=== PATIENT | female | born 1995 | race African-American/Black ===

== ENCOUNTER 2016-10-29 14:29 | Emergency (ER) | payer SELFPAY ==
[2016-10-29] MEDS ORDERED: HYDROCODONE/ACETAMINOPHEN 5-325 MG TABLET PO ONE (15:05)
--- NOTE | 2016-10-29 15:07 | ER Document Report ---
HPI - HPI Patient complains to provider of: bilat leg pain Onset: Last week Onset/Duration: Gradual Quality of pain: Achy Pain Level: 4 Context: pt c/o bilat leg muscle pain for the past week. Patient denies any injury, chest pain, or shortness of breath. Patient denies any fever. Patient states she does a lot of standing and walking at work. Patient states she has had similar episode in the past but was not diagnosed with anything in particular. Associated Symptoms: Other - Bilateral leg pain Exacerbated by: Standing, Movement, Walking Relieved by: Denies Similar symptoms previously: Yes Recently seen / treated by doctor: No - ROS ROS below otherwise negative: Yes Systems Reviewed and Negative: Yes All other systems reviewed and negative - CONSTITUTIONAL Constitutional: DENIES: Fever, Chills - NEURO Neurology: DENIES: Headache, Weakness - CARDIOVASCULAR Cardiovascular: DENIES: Chest pain - RESPIRATORY Respiratory: DENIES: Trouble Breathing, Coughing - GASTROINTESTINAL Gastrointestinal: DENIES: Nausea - MUSCULOSKELETAL Musculoskeletal: REPORTS: Extremity pain. DENIES: Back Pain, Swelling - DERM Skin Color: Normal, [place] Skin Problems: None - NURSING COMMENTS Comment: c/0 bilat leg pain denies any injury pt states that she stands on her feet and walks alot at work Past Medical History - General Information source: Patient Last Menstrual Period: 10-20-16 - Social History Smoking Status: Never Smoker Cigarette use (# per day): No Chew tobacco use (# tins/day): No Frequency of alcohol use: None Drug Abuse: None Occupation: food order delivery runner Lives with: Family Family History: Reviewed & Not Pertinent - Medical History Medical History: Negative - Past Medical History Cardiac Medical History: Denies: Hx DVT, Hx Pulmonary Embolism Surgical Hx: Negative - Immunizations Hx Diphtheria, Pertussis, Tetanus Vaccination: No Vertical Provider Document - CONSTITUTIONAL Agree With Documented VS: Yes Exam Limitations: No Limitations General Appearance: WD/WN, No Apparent Distress - INFECTION CONTROL TRAVEL OUTSIDE OF THE [place] IN LAST 30 DAYS: No - HEENT HEENT: Atraumatic, Normal ENT Exam, Normocephalic - NECK Neck: Normal Inspection, Supple. negative: Lymphadenopathy-Left, Lymphadenopathy-Right - RESPIRATORY Respiratory: Breath Sounds Normal, No Respiratory Distress, Chest Non-Tender O2 Sat by Pulse Oximetry: 99 - CARDIOVASCULAR Cardiovascular: Regular Rate, Regular Rhythm, No Murmur Pulses: Normal: Posterior tibial - BACK Back: Normal Inspection. negative: CVA Tenderness-Right, CVA Tenderness-Left - MUSCULOSKELETAL/EXTREMETIES Musculoskeletal/Extremeties: MAEW, Tender - Muscle tenderness to bilateral lower extremities. No edema. Normal skin color and temperature to legs bilaterally, no joint pain - NEURO Level of Consciousness: Awake, Alert, Appropriate Motor/Sensory: No Motor Deficit, No Sensory Deficit - DERM Integumentary: Warm, Dry, No Rash Course - Vital Signs Vital signs: Temp Pulse Resp BP Pulse Ox 97.7 F 69 20 101/79 99 10/29/16 14:35 10/29/16 14:35 10/29/16 14:35 10/29/16 14:35 10/29/16 14:35 - Laboratory Result Diagrams: 10/29/16 15:10 10/29/16 15:10 Laboratory results interpreted by me: 10/29/16 15:56 Labs- Entire Visit 10/29/16 10/29/16 10/29/16 15:10 15:10 15:10 WBC 4.2 RBC 4.63 Hgb 13.4 Hct 40.0 MCV 86 MCH 29.0 MCHC 33.6 RDW 13.5 Plt Count 277 Seg Neutrophils % 40.2 L Lymphocytes % 47.7 H Monocytes % 9.1 Eosinophils % 2.2 Basophils % 0.8 Absolute Neutrophils 1.7 Absolute Lymphocytes 2.0 Absolute Monocytes 0.4 Absolute Eosinophils 0.1 Absolute Basophils 0.0 Sodium 142.8 Potassium 4.1 Chloride 103 Carbon Dioxide 25 Anion Gap 15 BUN 11 Creatinine 0.71 Est GFR ( Amer) > 60 Est GFR (Non-Af Amer) > 60 Glucose 73 L Calcium 9.4 Total Bilirubin 0.4 Direct Bilirubin 0.0 AST 14 ALT 20 Alkaline Phosphatase 66 Creatine Kinase 86 Total Protein 7.1 Albumin 4.4 Serum HCG, Qual NEGATIVE Discharge - Discharge Clinical Impression: Myalgia Condition: Stable Disposition: HOME, SELF-CARE Instructions: Myalagia (Muscle Pain) ([facility]), Anti-Inflammatory Medication ([facility]) , Muscle Relaxers ([facility]) Additional Instructions: Return immediately for any new or worsening symptoms Followup with your primary care provider, call tomorrow to make a followup appointment Stay well-hydrated Prescriptions: Cyclobenzaprine HCl [Flexeril 10 Mg Tablet] 10 mg PO TID #15 tablet Naproxen [Naprosyn 250 Nmg Tablet] 1 tab PO BID #14 tablet Forms: Return to Work Referrals: [facility] [Provider Group] - Follow up as needed
[2016-10-29 15:42] LABS: ABSOLUTE EOSINOPHILS # (AUTO) 0.1 10^3/uL (0.0-0.6); ABSOLUTE MONOCYTES (AUTO) 0.4 10^3/uL (0.1-1.4); ABSOLUTE NEUT (AUTO) 1.7 10^3/uL (1.7-8.2); BASOPHILS % (AUTO) 0.8 % (0-2); EOSINOPHILS % (AUTO) 2.2 % (0-6); HEMOGLOBIN 13.4 g/dL (12.0-15.5); HGB HCT DIFFERENCE 0.2; LYMPHOCYTES % (AUTO) 47.7 % (13-45); MEAN CORPUSCULAR HGB CONC 33.6 g/dL (32.0-36.0); MEAN CORPUSCULAR VOLUME 86 fl (80-97); MONOCYTES % (AUTO) 9.1 % (3-13); RED BLOOD COUNT 4.63 10^6/uL (3.72-5.28); RED CELL DISTRIBUTION WIDTH 13.5 % (11.5-14.0); SEGMENTED NEUTROPHILS % (AUTO) 40.2 % (42-78); WHITE BLOOD COUNT 4.2 10^3/uL (4.0-10.5)
[2016-10-29 15:46] LABS: ALANINE AMINOTRANSFERASE 20 U/L (9-52); ALBUMIN 4.4 g/dL (3.5-5.0); ALKALINE PHOSPHATASE 66 U/L (38-126); ANION GAP 15 (5-19); ASPARTATE AMINO TRANSFERASE 14 U/L (14-36); BILIRUBIN,TOTAL 0.4 mg/dL (0.2-1.3); BLOOD UREA NITROGEN 11 mg/dL (7-20); CALCIUM 9.4 mg/dL (8.4-10.2); CARBON DIOXIDE 25 mmol/L (22-30); CHLORIDE 103 mmol/L (98-107); CREATINE KINASE 86 U/L (30-135); CREATININE RESULT 0.71 mg/dL (0.52-1.25); GLUCOSE 73 mg/dL (75-110); POTASSIUM 4.1 mmol/L (3.6-5.0); SODIUM 142.8 mmol/L (137-145); TOTAL PROTEIN 7.1 g/dL (6.3-8.2)
[2016-10-29 16:04] VITALS: BP 115/85
== END 2016-10-29 16:05 | disposition home or self-care (01) ==
LOC: ER 14:29
DX: M79.1 Myalgia (principal); M79.605 Pain in left leg; M79.604 Pain in right leg
CPT/HCPCS: 36415; 80053; 82550; 84703; 85025; 99283

== ENCOUNTER 2016-11-05 12:59 | Emergency (ER) | payer SELFPAY ==
[2016-11-05 13:13] VITALS: BP 128/65
--- NOTE | 2016-11-05 13:15 | ER Document Report ---
ED Medical Screen (RME) - General Stated Complaint: NAUSEA/VOMITING Notes: 21 yo female c/o n/v x 2 weeks. LMP 10/13/16. no pain. no bleeding. thinks she may be TRAVEL OUTSIDE OF THE [place] IN LAST 30 DAYS: No - Related Data Allergies/Adverse Reactions: No Known Allergies Allergy (Verified 11/05/16 13:13) Past Medical History - Past Medical History Cardiac Medical History: Denies: Hx DVT, Hx Pulmonary Embolism - Immunizations Hx Diphtheria, Pertussis, Tetanus Vaccination: No Physical Exam - Vital signs Vitals: Temp Pulse Resp BP Pulse Ox 98.0 F 131 H 17 128/65 H 100 11/05/16 13:12 11/05/16 13:12 11/05/16 13:12 11/05/16 13:12 11/05/16 13:12 Course - Vital Signs Vital signs: Temp Pulse Resp BP Pulse Ox 98.0 F 131 H 17 128/65 H 100 11/05/16 13:12 11/05/16 13:12 11/05/16 13:12 11/05/16 13:12 11/05/16 13:12
--- NOTE | 2016-11-05 14:56 | ER Document Report ---
ED GI/ - General Chief Complaint: Nausea/Vomiting Stated Complaint: NAUSEA/VOMITING Mode of Arrival: Ambulatory Information source: Patient Notes: 21-year-old female presents to the emergency department complaining of intermittent episodes of nausea and vomiting over the last 2 weeks. Patient is poor historian however reports approximately every other day has one episode of nausea and vomiting and this has been occurring approximately last 2 weeks. Patient states LMP was around 10/23/16 and is concerned she may be and is requesting a test. Denies fever, abdominal pain, diarrhea, dysuria , vaginal bleeding or discharge, blood in emesis or stool, chest pain or shortness of breath. TRAVEL OUTSIDE OF THE [place] IN LAST 30 DAYS: No - HPI Patient complains to provider of: Vomiting Timing/Duration: Intermittent Severity in ED: None Pain Level: Denies Vaginal bleeding (Compared to normal period): None Sexual history: Active, Unprotected intercourse. denies: New partner, STD exposure Similar symptoms previously: Yes Recently seen / treated by doctor: No - Related Data Allergies/Adverse Reactions: No Known Allergies Allergy (Verified 11/05/16 13:13) Past Medical History - General Information source: Patient - Social History Smoking Status: Never Smoker Chew tobacco use (# tins/day): No Frequency of alcohol use: None Drug Abuse: None Lives with: Family Family History: Reviewed & Not Pertinent Patient has suicidal ideation: No Patient has homicidal ideation: No - Medical History Medical History: Negative - Past Medical History Cardiac Medical History: Denies: Hx DVT, Hx Pulmonary Embolism Surgical Hx: Negative - Immunizations Hx Diphtheria, Pertussis, Tetanus Vaccination: Yes Review of Systems - Review of Systems Constitutional: No symptoms reported EENT: No symptoms reported Cardiovascular: No symptoms reported Respiratory: No symptoms reported Gastrointestinal: See HPI Genitourinary: No symptoms reported Female Genitourinary: No symptoms reported Musculoskeletal: No symptoms reported Skin: No symptoms reported Hematologic/Lymphatic: No symptoms reported Neurological/Psychological: No symptoms reported -: Yes All other systems reviewed and negative Physical Exam - Vital signs Vitals: Temp Pulse Resp BP Pulse Ox 98.0 F 131 H 17 128/65 H 100 11/05/16 13:12 11/05/16 13:12 11/05/16 13:12 11/05/16 13:12 11/05/16 13:12 Interpretation: Normal - General General appearance: Appears well, Alert In distress: None - HEENT Head: Normocephalic, Atraumatic Eyes: Normal Pupils: PERRL - Respiratory Respiratory status: No respiratory distress Chest status: Nontender Breath sounds: Normal Chest palpation: Normal - Cardiovascular Rhythm: Regular Heart sounds: Normal auscultation Murmur: No Pulses: Normal: Radial Normal capillary refill: Yes - Abdominal Inspection: Normal Distension: No distension Bowel sounds: Normal Tenderness: Nontender. No: Tender, McBurney's point, Salas's sign, Guarding, Rebound, Other Organomegaly: No organomegaly - Back Back: Normal, Nontender. No: Tender, Deformity/step-off, CVA tenderness, Vertebra tenderness, Scars, Scoliosis, Wounds, Other - Extremities General upper extremity: Normal inspection, Nontender, Normal color, Normal ROM , Normal strength, Normal temperature General lower extremity: Normal inspection, Nontender, Normal color, Normal ROM , Normal strength, Normal temperature, Normal weight bearing - Neurological Neuro grossly intact: Yes Cognition: Normal Orientation: AAOx4 Joey Coma Scale Eye Opening: Spontaneous Joey Coma Scale Verbal: Oriented Joey Coma Scale Motor: Obeys Commands Joey Coma Scale Total: 15 Speech: Normal Motor strength normal: LUE, RUE, LLE, RLE Sensory: Normal - Psychological Associated symptoms: Normal affect, Normal mood - Skin Skin Temperature: Warm Skin Moisture: Dry Skin Color: Normal Course - Re-evaluation Re-evalutation: 11/05/16 14:52 Patient hemodynamically stable, in no distress, afebrile. Patient presentation and physical exam were benign and unremarkable. Urine hCG negative. No emesis while in the emergency department and patient tolerated oral fluids without difficulty or vomiting. Patient refused any further laboratory or diagnostic evaluation and declined antiemetic medication as she stated she only wants to check if she is . Reviewed patient's previous visit record and noted she was evaluated in this emergency department 7 days ago and had negative serum hCG. The patient presents with subjective nausea/vomiting without signs of peritonitis or other life-threatening or serious etiology. The patient appears stable for discharge and has been instructed to return immediately if the symptoms worsen in any way, or in 8-12hr if not improved for re-evaluation. Patient heart rate was 92 beats per minutes via manual radial pulse at this time. - Vital Signs Vital signs: Temp Pulse Resp BP Pulse Ox 98.0 F 131 H 17 128/65 H 100 11/05/16 13:12 11/05/16 13:12 11/05/16 13:12 11/05/16 13:12 11/05/16 13:12 Discharge - Discharge Clinical Impression: Nausea & vomiting Qualifiers: Vomiting type: unspecified Vomiting Intractability: non-intractable Qualified Code(s): R11.2 - Nausea with vomiting, unspecified Condition: Stable Disposition: HOME, SELF-CARE Instructions: Nausea or Vomiting, Nonspecific ([facility]) Additional Instructions: Drink plenty of fluids, at least 2-3 liters of water per day. Follow-up with your primary care provider in 1-2 days as discussed. Return to the emergency department for any worsening symptoms or concerns.
== END 2016-11-05 15:06 | disposition home or self-care (01) ==
LOC: ER 12:59
DX: R11.2 Nausea with vomiting, unspecified (principal)
CPT/HCPCS: 81025; 99284

== ENCOUNTER 2017-02-10 07:45 | Emergency (ER) | payer SELFPAY ==
[2017-02-10 07:53] VITALS: BP 123/74
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
[2017-02-10] MEDS ORDERED: IBUPROFEN 800 MG TABLET PO ONE (08:03)
== END 2017-02-10 08:55 | disposition home or self-care (01) ==
LOC: ER 07:45
DX: M25.532 Pain in left wrist (principal); W19.XXXA Unspecified fall, initial encounter; Y92.009 Unspecified place in unspecified non-institutional (private) residence as the place of occurrence of the external cause
CPT/HCPCS: 99283